=== PATIENT | female | born 1940 ===

== ENCOUNTER 2025-06-13 05:00 | Outpatient (RCR) | payer MEDICARE, OTHER, SELFPAY | END 2025-07-12 23:59 | disposition home or self-care (01) | LOC: SPT 05:00 | PROVIDERS: Visit Provider Nurse Practitioner Family | DX: M53.9 Dorsopathy, unspecified (principal) | CPT/HCPCS: 97140; 97161; 97530 ==

== ENCOUNTER 2025-07-13 05:00 | Outpatient (RCR) | payer MEDICARE, OTHER, SELFPAY | END 2025-08-12 23:59 | disposition home or self-care (01) | LOC: SPT 05:00 | PROVIDERS: Visit Provider Nurse Practitioner Family | DX: M53.9 Dorsopathy, unspecified (principal) | CPT/HCPCS: 97110; 97140; 97530 ==

== ENCOUNTER 2025-08-13 05:00 | Outpatient (RCR) | payer MEDICARE, OTHER, SELFPAY | END 2025-09-11 23:59 | disposition home or self-care (01) | LOC: SPT 05:00 | PROVIDERS: Visit Provider Nurse Practitioner Family | DX: M53.9 Dorsopathy, unspecified (principal) | CPT/HCPCS: 97140 ==